=== PATIENT | female | born 1945 | race Caucasian/White ===

== ENCOUNTER 2017-03-25 20:11 | Inpatient (IN) | payer OTHER ==
--- NOTE | ~2017-03-25 | HP ---
Unit #: [id number] #: [id number] Patient: LENARD JOYNER [id number] [address] [place], [place] [address] [id number] I MR#: [id number] NAME: LENARD JOYNER ROOM: 46350 Age: 72 Sex: F Admission Date: 03/25/2017 : 1945 Attending Physician: Yesenia Zhong M.D. Primary Care Physician: Cinda Pelayo M.D. HISTORY AND PHYSICAL CHIEF COMPLAINT Progressive shortness of breath over one week. DISCUSSION This is a 72-year-old female who [facility] with a history of mild mental retardation, hypertension, history of breast cancer with previous lumpectomy and x-ray radiation in 1998, history of complete heart block requiring permanent pacemaker in the past, chronic lymphedema, morbid obesity, and chronic back pain. She was sent from [facility] for the evaluation of worsening shortness of breath over one week period of time. She found to have workup elevated BNP, CHF. Chest x-ray consistent with CHF and eventually been admitted. She denies chest pain. She says she has been having shortness of breath. She seems very anxious. Also, she had been having some dry cough, but denies nausea, vomiting, abdominal pain, or any other complaint. PAST MEDICAL HISTORY 1. History of depression. 2. History of degenerative joint disease. 3. History of mild mental retardation. 4. Hypertension. 5. History of urinary incontinence. 6. History of breast cancer, status post lumpectomy and x-ray radiation therapy of left breast in 1998. 7. History of chronic L1 compression fracture. 8. Complete heart block requiring permanent pacemaker insertion in the past. 9. History of lymphedema. 10. Morbid obesity. 11. Dyslipidemia. 12. Chronic back pain. ALLERGIES No known drug allergies. SOCIAL HISTORY Patient currently lives in the [facility]. Denies smoking. Denies alcohol. Denies illicit drug use. FAMILY HISTORY Noncontributory. MEDICATIONS Medications from the [facility] are the following: Unit #: [id number] #: [id number] Patient: LENARD JOYNER 1. Lasix 60 mg twice daily. 2. Acetylcysteine 600 mg daily. 3. Lipitor 10 mg daily. 4. Tylenol 325 q.6 hours p.r.n. 5. Tylenol #3 one tablet q.6 hours p.r.n. 6. Aspirin 81 mg daily. 7. Claritin 10 mg daily. 8. Citalopram 10 mg daily. 9. Wellbutrin 150 mg in the morning and evening. 10. K-Dur 20 mEq p.o. daily. 11. Zestril 20 mg daily. 12. Mucinex 600 mg twice daily. REVIEW OF SYSTEMS All the review of systems negative, except history of present illness. PHYSICAL EXAMINATION GENERAL APPEARANCE: Middle-aged female lying in the bed comfortably. Currently not in any distress. She is alert, awake, and oriented x2. VITAL SIGNS: Current vitals are following: Temperature 98.4, heart rate is 110, respiratory rate 22, blood pressure 182/92, and oxygen 94% on 2 liters. HEENT: Pupils equal and reactive to light and accommodation. Head is normocephalic and atraumatic. NECK: Supple. No JVD. No thyromegaly. LUNGS: Poor air entry with scattered wheeze. HEART: S1 and S2. Regular rate and rhythm. ABDOMEN: Soft, obese, and nontender. EXTREMITIES: Trace edema. NEURO: No focal neurologic deficits. Cranial nerves, II-XII, intact. DIAGNOSTIC STUDIES LABORATORY: Workup is following. White count is 17.7, hemoglobin is 12, hematocrit 38, and platelets are 312. Sodium 120, potassium 3.4, chloride 83, glucose 141, BUN 8, and creatinine 0.5. LFTs within normal limits. BNP is 507. INR is 1. Lactic acid level is 1.2. Troponin less than 0.05. ABG shows pH 7.46, CO2 40, CO2 oxygen 84%. IMAGING: Chest x-ray consistent with CHF. ASSESSMENT AND PLAN 1. CHF with (1) chest x-ray consistent with pulmonary edema. Will start patient on IV Bumex, get 2D echo, and cardiology to evaluate. 2. Hyponatremia. Most likely secondary to volume overload. Will give diuretics and (2) check, also, TSH and fluid restriction. 3. Leukocytosis. Will get urine for UA. 4. Mild hypokalemia, replace. 5. History of depression. 6. Hypertension. 7. Lymphedema. 8. Dyslipidemia. 9. Chronic lower back pain. 10. Morbid obesity. 11. DVT prophylaxis. Will place the patient on Lovenox. Unit #: [id number] #: [id number] Patient: LENARD JOYNER Dictated by Ana Norman TD: 03/26/2017 06:25 JOB #: [id number] HISTORY AND PHYSICAL Page 1 of 1 X X HISTORY AND PHYSICAL
--- NOTE | ~2017-03-25 | DS ---
Unit #: [id number] #: [id number] Patient: LENARD JOYNER [id number] [address] [address] [id number] I MR#: [id number] NAME: LENARD JOYNER ROOM: 325 Age: 72 Sex: F Admission Date: 03/25/2017 : 1945 Discharge Date: 03/29/2017 Attending Physician: Jb Lenz M.D. Primary Care Physician: Cinda Pelayo M.D. DISCHARGE SUMMARY DIAGNOSIS ON ADMISSION 1. CHF. 2. Volume overload. DIAGNOSES ON DISCHARGE 1. Chronic systolic congestive heart failure, ejection fraction 25% to 30%. 2. Valvular heart disease with mild mitral and tricuspid regurgitation. 3. Hyponatremia. 4. Hypertension. 5. Hyperlipidemia. 6. Mild mental retardation. 7. Morbid obesity. 8. History of breast cancer and lumpectomy. 9. History of complete heart block requiring permanent pacemaker in the past. 10. History of lymphedema. 11. Chronic low back pain. CONSULTATIONS 1. Dr. Kate in renal consultation. 2. Dr. Iqbal in cardiology consultation. DIAGNOSTIC STUDIES CARDIOVASCULAR: The patient had a two-D echocardiogram done with ejection fraction of 25% to 30%. She had impaired relaxation present. She also had mild mitral and tricuspid regurgitation present. LABS: The patient's creatinine was 0.6, sodium was 130. The patient's sodium on admission was 120. The patient's potassium is 4. Calcium is 8.1. Troponin is 0.06. WBC is 14.8, hemoglobin 12.6, platelet count 297. TSH was 0.69. HOSPITAL COURSE This 72-year-old female was admitted to [facility] with shortness of air. Details are as per admission H and P. Acute congestive heart failure. Patient was seen by cardiology in consultation. Was treated with IV diuretics. Patient is feeling much better now. Hyponatremia, which was likely secondary to syndrome of inappropriate antidiuretic hormone. Patient received Samsca. Her sodium is much better. Dr. 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 PHYSICAL EXAMINATION GENERAL: Today, the patient is comfortable, is not in any acute distress. [facility] VITAL SIGNS: Vital signs reveal temperature of 97.4, pulse 65 per minute, respiratory rate 16 per minute and blood pressure is 136/74. HEENT: Examination revealed no conjunctival congestion. Sclera is nonicteric. NECK: Neck is supple. Trachea is central. RESPIRATORY: Examination revealed decreased breath sounds bilaterally. There are no wheezes or crackles. HEART: Regular rate and rhythm. S1, S2. ABDOMEN: Abdomen is soft, nontender. Bowel sounds are present. EXTREMITIES: Extremities reveal 1+ edema. SKIN: Skin is warm and dry. RECOMMENDATIONS ON DISCHARGE 1. Condition is stable. 2. Activity is as tolerated. MEDICATIONS 1. Tylenol 325 mg p.o. q.6 hours p.r.n. for pain. 2. Wellbutrin 150 mg p.o. every morning. 3. Claritin 10 mg p.o. daily p.r.n. 4. Lopressor 12.5 mg p.o. b.i.d. 5. Bumex 1 mg p.o. b.i.d. 6. Mucinex 600 mg p.o. b.i.d. 7. Lipitor 10 mg p.o. q.h.s. 8. Lisinopril 20 mg p.o. daily. 9. Enteric-coated aspirin 81 mg p.o. daily. 10. Tylenol with codeine #3 1 p.o. q.6 hours p.r.n. 11. Potassium 20 mEq p.o. daily. DISPOSITION Patient will be transferred to [place]. NOTE: Kindly discuss goals of care with the patient and family, as the patient, because of her multiple medical issues, should be DNR. Please discuss that with the patient's family and follow up with them. Dictated by... Ana Rao TD: 03/29/2017 14:05 JOB #: [id number] Unit #: [id number] #: [id number] Patient: DISCHARGE SUMMARY Page 1 of 1 X Jb Lenz MD SUMMARY
--- NOTE | ~2017-03-25 | EKG ---
PATIENT: LENARD JOYNER UNIT #: [id number] Ventricular Rate: 106 BPM Atrial Rate: 106 BPM P-R Interval: 170 ms QRS Duration: 118 ms Q-T Interval: 324 ms QTC Calculation(Bezet): 430 ms P [place]: 49 degrees Calculated R [place]: 142 degrees Calculated T [place]: 71 degrees Diagnosis Line: Sinus tachycardia Diagnosis Line: Non-specific intra-ventricular conduction delay Diagnosis Line: Poor R wave progression questionable lead position Diagnosis Line: or body habitus Diagnosis Line: Abnormal ECG Diagnosis Line: No previous ECGs available Diagnosis Line: Confirmed by INA ANDREA MD ([id number]) on Diagnosis Line: 03/27/2017 1:19:00 PM INTERPRETING MD: TRISTAN
--- NOTE | ~2017-03-25 | EKG ---
PATIENT: LENARD JOYNER UNIT #: [id number] Ventricular Rate: 82 BPM Atrial Rate: 82 BPM P-R Interval: 162 ms QRS Duration: 110 ms Q-T Interval: 438 ms QTC Calculation(Bezet): 511 ms P [place]: 74 degrees Calculated R [place]: 129 degrees Calculated T [place]: 134 degrees Diagnosis Line: Normal sinus rhythm Diagnosis Line: Non-specific intra-ventricular conduction delay Diagnosis Line: Poor R wave progression questionable lead position Diagnosis Line: or body habitus Diagnosis Line: Prolonged QT Diagnosis Line: Nonspecific ST and T wave abnormality Diagnosis Line: Abnormal ECG Diagnosis Line: Diagnosis Line: Confirmed by INA ANDREA MD ([id number]) on Diagnosis Line: 03/27/2017 2:11:42 PM INTERPRETING : TRISTAN
--- NOTE | ~2017-03-25 | CO ---
Unit #: [id number] #: [id number] Patient: LENARD JOYNER [id number] [address] [address] [id number] MR#: [id number] NAME: LENARD JOYNER ROOM: 325 Age: 72 Sex: F Admission Date: 03/25/2017 : 1945 Attending Physician: Jb Lenz M.D. Primary Care Physician: Cinda Pelayo M.D. CONSULTATION REPORT REASON FOR CONSULTATION Hyponatremia. HISTORY OF PRESENT ILLNESS The patient is a 72-year-old female with a significant past medical history of some mental retardation, depression, degenerative joint disease, urinary incontinence, history of breast cancer with a history of lumpectomy back in 1998, history of some back problem with L1 compression, history of swelling of the lower extremity in the past, morbid obesity, and she came to the hospital with increasing shortness of breath, increasing swelling of the lower extremities. When I saw the patient the swelling was minimal at that time. He shortness of breath was better, but she was on oxygen at that time. Her BNP level was elevated, but she was found to have a sodium of 120 which improved to 121 after loop diuretics. The patient is on fluid restriction at this time. Shortness of breath is still present, but much better. She denies any fever or chills, still complaining of some cough. No significant orthopnea. Last echocardiogram was normal. PAST MEDICAL HISTORY 1. Significant for depression. 2. Mental retardation. 3. Urinary incontinence. 4. Breast cancer. 5. Morbid obesity. SOCIAL HISTORY The patient lives in assisted living. CURRENT MEDICATIONS 1. Lasix. 2. Claritin. 3. Citalopram. 4. Wellbutrin. 5. K-Dur. 6. Zestril. 7. Mucinex. REVIEW OF SYSTEMS Already explained in history of present illness. PHYSICAL EXAMINATION GENERAL: The patient is a middle-aged female, not in any acute distress. VITALS: Last blood pressure was 135/80, pulse 85, temperature 98, Unit #: [id number] #: [id number] Patient: LENARD JOYNER respiratory rate 22. HEENT: Pupils reactive to light. Extraocular movements intact. NECK: Supple. No jugular venous distension. No palpable lymph node in the neck. Thyroid is not enlarged. No carotid bruit. CHEST: Bilateral air entry with some rhonchi. HEART: Regular rate and rhythm. No murmur. No gallop. ABDOMEN: Soft, nontender. Pulses are positive. No guarding. No rigidity. EXTREMITIES: Trace edema. NEUROLOGIC: Grossly nonfocal. DIAGNOSTIC STUDIES LABORATORY: White blood cell count 13,000 and was 17,000, hemoglobin 12, sodium 121, potassium 3.6, chloride 85, calcium 7.8. Urine osmolality is 542. Urine sodium is 19. ASSESSMENT/PLAN 1. Hyponatremia. Cause of hyponatremia is likely some SIADH, because sodium level is significant low and the likely cause may be SSRI in the presence of the patient's decreased free water intake. At this time fluid restriction started. Loop diuretics started. Will follow up closely. 2. Congestive heart failure, although symptomatically and radiologically the patient has some congestive heart failure loop diuretics will be continued. Will follow up closely. 3. Edema. Continue diuresis secondary to maybe some diastolic dysfunction. 4. Leukocytosis. Urinalysis showed some hematuria, some proteinuria. That will be reevaluated. Antibiotics have already been started for leukocytosis, but rule out pneumonia, especially in the presence of SIADH. If sodium is not improving, may need a CAT scan to rule out any malignancy. 5. Hypertension. Blood pressure is better with diuresis. Will follow up with repeat labs later today and tomorrow morning. Thank you, Dr. Lenz, for letting me evaluate and take care of this patient. Dictated by... Ana Wesley TD: 03/27/2017 10:16 JOB #: [id number] Unit #: [id number] #: [id number] Patient: LENARD JOYNER CONSULTATION REPORT Page 1 of 1 X Roberto Kate MD CONSULTATION REPORT
--- NOTE | ~2017-03-25 | BMI ---
[facility] Nutrition Therapy DATE: 03/27/17 Patient: LENARD JOYNER Physician: PEDRO Address: [facility] Room/Bed: [address] [place] [address], Zip: [place] [address] Admit Date: 03/25/17 Date of : [birth year] Height: Weight: 279 126.8 HIGH BMI NOTE: DX: 72 y/o female admitted with SOB, CHF exacerbation with volume overload and hyponatremia ANTHROPOMETRICS: Ht: 60", Wt: 279 lbs, BMI: 54.5 (Stage III obese) DIET: Healthy heart INTERVENTION: Restricted diet, meds/fluids per MD RECOMMENDATIONS: Continue current diet due to clinical diagnosis and PMH to promote a gradual weight loss towards a healthy BMI range. Respectfully, Yessi De Santiago RD, LD Food and Nutritional Services [facility] cc: client file
--- NOTE | ~2017-03-25 | CO ---
Unit #: [id number] #: [id number] Patient: LENARD JOYNER [id number] [address] [address] [id number] I MR#: [id number] NAME: LENARD JOYNER ROOM: 325 Age: 72 Sex: F Admission Date: 03/25/2017 : 1945 Attending Physician: Jb Lenz M.D. Primary Care Physician: Cinda Pelayo M.D. Consultation Date: 03/26/2017 CONSULTATION REPORT REASON FOR CONSULTATION Congestive heart failure. HISTORY OF PRESENT ILLNESS This is a 72-year-old white female who was transferred to the emergency room from the group home because of shortness of breath. The patient is a poor historian but says that she has been dyspneic for the past one month. She reports wheezing, "two-pillow" orthopnea, with symptoms of paroxysmal nocturnal dyspnea. She has had persistent leg edema. Her chest x-ray was consistent with congestive heart failure with elevated BNP of 507. She was also hyponatremic with sodium level of 120. She was treated with IV diuretics. From a cardiac standpoint the patient has a history of hypertension, hyperlipidemia and obesity as risk factors for ischemic heart disease. She had a Lexiscan Cardiolite stress test in 2010 which showed no ischemia. Of note, there was a notation of a permanent pacemaker implantation for complete heart block. However, there was no record of permanent pacemaker for this patient on record with [employer]. PAST MEDICAL HISTORY 1. Two-D echocardiogram 05/29/2011 shows grossly normal left ventricle. There is normal structure and function of the valves. 2. Lexiscan Cardiolite stress test 05/18/2011 shows fixed defect in the distal anterior wall consistent with soft tissue attenuation versus artifact. No ischemia. Ejection fraction of 58%. 3. Hypertension. 4. Hyperlipidemia. 5. Hypothermia induced, myocardial infarction. 6. Mild mental retardation. 7. Chronic back pain. 8. Obesity. 9. Breast cancer, status post lumpectomy. 10. Lymphedema to bilateral lower extremities. 11. Nonsmoker. 12. correction resident. PAST SURGICAL HISTORY Breast lumpectomy. SOCIAL HISTORY The patient lives in a group home. She denies a history of tobacco, alcohol or illicit drug use. Unit #: [id number] #: [id number] Patient: LENARD JOYNER FAMILY HISTORY Noncontributory. ALLERGIES No known drug allergies. INTERMEDIATE MEDICATIONS 1. Zestril 20 mg daily. 2. Mucinex 600 mg b.i.d. 3. Aspirin 81 mg daily. 4. Claritin 10 mg daily. 5. Citalopram 10 mg daily. 6. Wellbutrin 150 mg 7. Potassium chloride 20 mEq daily. 8. Furosemide 60 mg b.i.d. 9. Acetylcysteine 600 mg daily. 10. Atorvastatin 10 mg daily. 11. Acetaminophen 325 mg q.6 h. p.r.n. 12. Tylenol #3 with codeine one q.6 h. p.r.n. REVIEW OF SYSTEMS CONSTITUTIONAL: Negative for fever or chills. Has no weight gain that she is aware of. HEENT: No headache, hearing or vision changes or difficulty with swallowing. Denies dizziness. CARDIOVASCULAR: Has no symptoms of angina. Denies palpitations. Positive for paroxysmal nocturnal dyspnea with "three-pillow" orthopnea. No syncope or near syncope. RESPIRATORY: Positive for dyspnea at rest with occasional productive cough. No hemoptysis. GASTROINTESTINAL: No abdominal pain, nausea or vomiting. No constipation or melena. EXTREMITIES: Positive for lower extremity edema. PHYSICAL EXAMINATION VITAL SIGNS: Blood pressure 182/92, heart rate 98, temperature 98.4. GENERAL: This is a 72-year-old obese white female who is in mild respiratory distress. NEUROLOGICAL: She is awake, alert and oriented. There are no focal weakness. NECK: Trachea is midline. No thyromegaly or lymphadenopathy, with positive jugular venous distention. HEART: S1, S2. Heart sounds are normal. No murmurs or rubs or clicks. Regular rate and rhythm. LUNGS: With coarse rales and wheezes both lungs. No rhonchi. ABDOMEN: Soft, obese, with bowel sounds present. EXTREMITIES: With 2+ leg edema. SKIN: Warm and dry. DIAGNOSTIC STUDIES LABORATORY: White count is 13.5, hemoglobin 12.8, hematocrit 38.6, platelet count 283, glucose 162, BUN 9, creatinine 0.6, sodium 121, potassium 3.6, BNP 507, TSH 0.69, troponin less than 0.05. IMAGING: Chest x-ray shows . CARDIOVASCULAR: EKG shows sinus tachycardia with a rate of 106 beats per minute. There is limb reversal noted. Repeat EKG will be done. Unit #: [id number] #: [id number] Patient: LENARD JOYNER IMPRESSION 1. Acute diastolic heart failure. 2. Hyponatremia. 3. Hypertension. 4. Hyperlipidemia. 5. Obesity. 6. Mild mental retardation. PLAN 1. Cardiology was consulted for congestive heart failure. 2. Diuretic has been started as per Renal. 3. Place the patient on fluid restriction. 4. Will obtain 2D echocardiogram to evaluate left ventricular systolic function. Most likely the heart failure is diastolic in nature. 5. Repeat troponin and EKG. 6. Lipid profile will be obtained. Thank you for allowing us to assist with this patient's care. JOB #: [id number] Dictated by... Sharon DueñasPWillRYesi for Ana Hidalgo/alexandre TD: 03/28/2017 22:41 JOB #: [id number] CONSULTATION REPORT Page 1 of 1 X Luis Felipe Rodriges APRN X CONSULTATION REPORT
--- NOTE | ~2017-03-25 | CR72 ---
[facility] A Service of [facility] RADIOLOGY TEXT RESULTS PATIENT: LENARD JOYNER LOCATION: [facility] 325- : 45 UNIT #: [id number] AGE: [address]: Jb Lenz MD SEX: F ORDER DR: [id number] [facility] [address] [facility]. [place], [place] [address] [id number] I MR#: [id number] Acc #: [id number] NAME: LENARD JOYNER : 1945 SEX: F STUDY DATE/TIME: 03/25/2017 21:42 UNIT: CED ROOM: 20081 STUDY DESCRIPTION: CR Chest Single View Portable Attending Physician: Jb Lenz M.D. Ordering Physician: Cayetano Ferrara D.O. Primary Care Physician: Cinda Pelayo M.D. MEDICAL IMAGING REPORT This report is preliminary unless electronic signature is present EXAM Portable chest 03/25/2017 COMPARISON 01/02/2015. HISTORY Shortness of breath and cough for 2 weeks. FINDINGS AP portable view was obtained. There is cardiomegaly. The patient has developed pulmonary vascular congestion and edema. Calcifications are seen in multiple left-sided hilar nodes. There are clips identified in the right axillary region. CONCLUSION Radiographic features consistent with congestive heart failure. Dictated by... Angel Cartagena M.D. THIS IS AN ELECTRONICALLY VERIFIED REPORT Angel Cartagena M.D. at 03/26/2017 6:08 PM SRAVANI/surya TD: 03/26/2017 07:26 JOB #: [id number] MEDICAL IMAGING REPORT Page 1 of 1 COPY
[~2017-03-25 20:11] MED LIST: ACETAMINOPHEN325 MG PO; ALBUTEROL17 GM INH; AMITRYPTYLINE PO; AMLODIPINE BESY10 MG PO; BACTROBAN22 GM TP; BAYER ASPIRIN325 M1 PO; COREG3.125 MG PO; DITROPAN XL; DITROPAN XL5 M1 PO; FLEXERIL10 MG PO; IRON325 ( 652 PO; LEVAQUIN250 MG PO; LOC PO; NAPROSYN500 MG PO; NAPROXEN PO; NAPROXEN SODIU500 MG PO; NAPROXEN25 GM PO; NERVE PILL; NORVASC; NORVASC PO; NORVASC10 MG PO; PERCOCET5/325 PO; XENADERM; ZESTRIL5 MG PO; ZOLOFT PO; ZOLOFT100 MG PO
[2017-03-25 21:28] LABS: ARTERIAL BLD GAS O2 SATURATION 95.6 % (90.0-100.0); ARTERIAL BLOOD GAS CARBOXY HB 0.9 %sat (0.0-9.0); ARTERIAL BLOOD GAS HCO3 28.8 mmol/L; ARTERIAL BLOOD GAS PO2 84.9 mmHg (80.0-100); ARTERIAL BLOOD GAS pH 7.466 (7.350-7.450)
[2017-03-25 21:29] LABS: ARTERIAL BLOOD GAS ART SITE RIGHT BRACHIAL; ARTERIAL BLOOD GAS DELIVERY NASAL CANNULA; ARTERIAL BLOOD GAS MET HB 0.6 %sat (0.0-2.0); ARTERIAL DRAW? YES
[2017-03-25 22:03] LABS: POC - CKMB 11.2 ng/mL (0.0-7.9); POC - TROPONIN <0.05 ng/mL (<=0.05)
[2017-03-25 22:08] LABS: BASOPHIL% 0.2 % (0-2.5); EOSINOPHIL% 0.1 % (0.0-7.0); HEMOGLOBIN 12.7 gm/dL (12.0-16.0); LYMPHOCYTE# 1.1 X10e3 (1.0-3.5); LYMPHOCYTE% 6.4 % (17.0-45.0); MEAN CELL VOLUME 81.4 FL (83-96); MEAN CORPUSCULAR HEMOGLOBIN 27.2 PG (28-34); MEAN CORPUSCULAR HGB CONC 33.4 g/dL (30-36); MONOCYTE# 1.7 X10e3 (0-1.0); MONOCYTE% 9.6 % (3.0-12.0); NEUTROPHIL# 14.8 X10e3 (1.5-7.1); NEUTROPHIL% 83.7 % (40-75); PLATELET COUNT 312 X10e3 (140-420); RED BLOOD COUNT 4.66 X10e (3.90-5.30); RED CELL DISTRIBUTION WIDTH 13.7 % (11.0-15.5); WHITE BLOOD COUNT 17.7 X10e3 (4.0-10.5)
[2017-03-25 22:11] LABS: DIFF IND YES
[2017-03-25 22:14] LABS: PROTHROMBIN TIME (PATIENT) 10.6 SECONDS (9.6-11.5)
[2017-03-25 22:32] LABS: ALBUMIN SERUM 3.2 g/dL (3.5-5.0); BILIRUBIN, DIRECT 0.1 mg/dL (0.0-0.2); BILIRUBIN,INDIRECT 0.5 mg/dL (0.0-0.9); BILIRUBIN,TOTAL 0.6 mg/dL (0.2-2.0); CALCIUM SERUM 8.3 mg/dL (8.4-10.2); CREATININE SERUM 0.5 mg/dL (0.6-1.4); GLOM FILT RATE Estimated 96.7 mL/min (>60); POTASSIUM 3.4 mmol/L (3.5-5.1); PROTEIN TOTAL SERUM 7.2 g/dL (6.0-8.3)
[2017-03-25 22:47] LABS: ANISOCYTOSIS SL; PLATELET ESTIMATE NORMAL (NORMAL)
[2017-03-25] MEDS ORDERED: ASPIRIN EC81 M1 PO (23:13)
[2017-03-25] MEDS ORDERED: CLARITIN10 M3 PO (23:14)
[2017-03-25] MEDS ORDERED: CELEXA10 MG PO (23:14)
[2017-03-25] MEDS ORDERED: K-DUR20 ME1 PO (23:15)
[2017-03-25] MEDS ORDERED: WELLBUTRIN XL150 M2 PO (23:15)
[2017-03-25] MEDS ORDERED: LASIX PO (23:16)
[2017-03-25] MEDS ORDERED: NAC600 MG PO (23:16)
[2017-03-25] MEDS ORDERED: LIPITOR PO (23:17)
[2017-03-25] MEDS ORDERED: TYL325 PO (23:18)
[2017-03-25] MEDS ORDERED: TYLENOL #3 PO (23:19)
[2017-03-25] MEDS ORDERED: LISINOPRIL PO (23:20)
[2017-03-25] MEDS ORDERED: MUCINEX100 MG/5 M PO (23:21)
[2017-03-26 01:13] LABS: URINE SOURCE CATH
[2017-03-26 01:34] LABS: URINE APPEARANCE CLEAR; URINE BILIRUBIN NEG (NEG); URINE BLOOD 2+ (NEG); URINE COLOR YELLOW; URINE GLUCOSE NEG (NEG); URINE KETONE TRACE (NEG); URINE LEUKOCYTE ESTERASE NEG (NEG); URINE NITRATE NEG (NEG); URINE PROTEIN 2+ (NEG); URINE SPECIFIC GRAVITY 1.012 (1.003-1.035)
[2017-03-26 01:36] LABS: URINE BACTERIA AUWI NEG (NEGATIVE); URINE SQUAMOUS EPITHELIAL CELL OCC /[HPF]; UWBCS1 AUWI 0-2 (0-5)
[2017-03-26 01:57] LABS: CULTURE INDICATED? NO
[2017-03-26 08:43] LABS: BASOPHIL% 0.2 % (0-2.5); EOSINOPHIL% 0.1 % (0.0-7.0); HEMATOCRIT 38.6 % (35.0-45.0); HEMOGLOBIN 12.8 gm/dL (12.0-16.0); LYMPHOCYTE# 0.8 X10e3 (1.0-3.5); LYMPHOCYTE% 6.3 % (17.0-45.0); MEAN CELL VOLUME 81.3 FL (83-96); MEAN CORPUSCULAR HGB CONC 33.3 g/dL (30-36); MEAN PLATELET VOLUME 7.8 FL (6.5-11.5); MONOCYTE# 0.3 X10e3 (0-1.0); MONOCYTE% 2.1 % (3.0-12.0); NEUTROPHIL# 12.3 X10e3 (1.5-7.1); NEUTROPHIL% 91.3 % (40-75); PLATELET COUNT 283 X10e3 (140-420); RED BLOOD COUNT 4.75 X10e (3.90-5.30); RED CELL DISTRIBUTION WIDTH 13.7 % (11.0-15.5); WHITE BLOOD COUNT 13.5 X10e3 (4.0-10.5)
[2017-03-26 08:44] LABS: DIFF IND NO
[2017-03-26 09:13] LABS: CALCIUM SERUM 7.8 mg/dL (8.4-10.2); CREATININE SERUM 0.6 mg/dL (0.6-1.4); GLOM FILT RATE Estimated 91.1 mL/min (>60); POTASSIUM 3.6 mmol/L (3.5-5.1)
[2017-03-26 11:53] LABS: URINE SOURCE CLEAN CATCH
[2017-03-26 11:57] LABS: URINE APPEARANCE CLEAR; URINE BILIRUBIN NEG (NEG); URINE BLOOD 3+ (NEG); URINE COLOR YELLOW; URINE GLUCOSE NEG (NEG); URINE KETONE 1+ (NEG); URINE LEUKOCYTE ESTERASE NEG (NEG); URINE NITRATE NEG (NEG); URINE PROTEIN 2+ (NEG)
[2017-03-26 11:59] LABS: URBCS1 AUWI 200-300 /[HPF] (0-2); URINE BACTERIA AUWI NEG (NEGATIVE); URINE SQUAMOUS EPITHELIAL CELL OCC /[HPF]
[2017-03-26 12:00] LABS: CULTURE INDICATED? NO
[2017-03-26 13:13] LABS: OSMOLALITY,URINE 542 mOsmo/kg (250-900)
[2017-03-26 13:22] LABS: CREATININE,RANDOM URINE 107 mg/dL; SODIUM URINE RANDOM 19 mmol/L
[2017-03-26 15:06] LABS: CALCIUM SERUM 7.9 mg/dL (8.4-10.2); CREATININE SERUM 0.5 mg/dL (0.6-1.4); GLOM FILT RATE Estimated 96.7 mL/min (>60); POTASSIUM 3.5 mmol/L (3.5-5.1); URIC ACID 3.3 mg/dL (2.6-7.2)
[2017-03-26 19:56] LABS: CREATININE SERUM 0.6 mg/dL (0.6-1.4); GLOM FILT RATE Estimated 91.1 mL/min (>60); POTASSIUM 3.4 mmol/L (3.5-5.1)
[2017-03-27 09:32] LABS: HEMATOCRIT 38.1 % (35.0-45.0); HEMOGLOBIN 12.5 gm/dL (12.0-16.0); MEAN CELL VOLUME 82.9 FL (83-96); MEAN CORPUSCULAR HEMOGLOBIN 27.2 PG (28-34); MEAN CORPUSCULAR HGB CONC 32.8 g/dL (30-36); MEAN PLATELET VOLUME 8.1 FL (6.5-11.5); RED BLOOD COUNT 4.59 X10e (3.90-5.30); RED CELL DISTRIBUTION WIDTH 14.2 % (11.0-15.5); WHITE BLOOD COUNT 16.4 X10e3 (4.0-10.5)
[2017-03-27 10:01] LABS: CALCIUM SERUM 7.8 mg/dL (8.4-10.2); CREATININE SERUM 0.7 mg/dL (0.6-1.4); GLOM FILT RATE Estimated 86.6 mL/min (>60); MAGNESIUM 1.8 mg/dL (1.6-3.0); PHOSPHOROUS 2.9 mg/dL (2.5-4.6); POTASSIUM 3.5 mmol/L (3.5-5.1)
[2017-03-27 10:04] LABS: CHOLESTEROL 100 mg/dL (0-200); HDL CHOLESTEROL 35 mg/dL (35-95); LDL CHOLESTEROL 45 mg/dL (-130); LDL/HDL RATIO 1 RATIO (0-4); TRIGLYCERIDES 102 mg/dL (10-160)
[2017-03-27 20:34] LABS: BUN/CREATININE RATIO 24.28; CREATININE SERUM 0.7 mg/dL (0.6-1.4); GLOM FILT RATE Estimated 86.6 mL/min (>60); POTASSIUM 3.9 mmol/L (3.5-5.1)
[2017-03-28 06:21] LABS: HEMATOCRIT 36.5 % (35.0-45.0); HEMOGLOBIN 12.2 gm/dL (12.0-16.0); MEAN CELL VOLUME 83.4 FL (83-96); MEAN CORPUSCULAR HEMOGLOBIN 27.9 PG (28-34); MEAN CORPUSCULAR HGB CONC 33.5 g/dL (30-36); RED BLOOD COUNT 4.37 X10e (3.90-5.30); RED CELL DISTRIBUTION WIDTH 13.9 % (11.0-15.5)
[2017-03-28 07:29] LABS: BUN/CREATININE RATIO 22.85; CALCIUM SERUM 7.9 mg/dL (8.4-10.2); CREATININE SERUM 0.7 mg/dL (0.6-1.4); GLOM FILT RATE Estimated 86.6 mL/min (>60); MAGNESIUM 2.1 mg/dL (1.6-3.0); POTASSIUM 3.5 mmol/L (3.5-5.1)
[2017-03-28 18:13] LABS: BUN/CREATININE RATIO 21.42; CALCIUM SERUM 8.2 mg/dL (8.4-10.2); CREATININE SERUM 0.7 mg/dL (0.6-1.4); GLOM FILT RATE Estimated 86.6 mL/min (>60); POTASSIUM 4.2 mmol/L (3.5-5.1)
[2017-03-29 06:02] LABS: HEMATOCRIT 39.1 % (35.0-45.0); HEMOGLOBIN 12.6 gm/dL (12.0-16.0); MEAN CELL VOLUME 84.6 FL (83-96); MEAN CORPUSCULAR HEMOGLOBIN 27.2 PG (28-34); MEAN CORPUSCULAR HGB CONC 32.2 g/dL (30-36); MEAN PLATELET VOLUME 8.1 FL (6.5-11.5); RED BLOOD COUNT 4.61 X10e (3.90-5.30); RED CELL DISTRIBUTION WIDTH 14.4 % (11.0-15.5); WHITE BLOOD COUNT 14.8 X10e3 (4.0-10.5)
[2017-03-29 07:15] LABS: BUN/CREATININE RATIO 23.33; CALCIUM SERUM 8.1 mg/dL (8.4-10.2); CREATININE SERUM 0.6 mg/dL (0.6-1.4); GLOM FILT RATE Estimated 91.1 mL/min (>60); MAGNESIUM 2.3 mg/dL (1.6-3.0)
== END 2017-03-29 17:15 | DRG 292 ==
LOC: CED 20:11 → CEDOF 23:40 → C3A PCU 23:40 → CED 23:43 → CEDOF 23:43 → C3A PCU 03-26 15:15
PROVIDERS: Emergency Medicine; Family Medicine; Internal Medicine; Internal Medicine Cardiovascular Disease; Internal Medicine Nephrology
PROC: B24BZZZ Ultrasonography of Heart with Aorta (ICD-10-PCS; principal; 2017-03-26)
DX: I11.0 Hypertensive heart disease with heart failure (principal); E22.2 Syndrome of inappropriate secretion of antidiuretic hormone; I08.1 Rheumatic disorders of both mitral and tricuspid valves; E66.01 Morbid (severe) obesity due to excess calories; I50.21 Acute systolic (congestive) heart failure; E78.5 Hyperlipidemia, unspecified; F70 Mild intellectual disabilities; G89.29 Other chronic pain; M54.5 Low back pain; D72.829 Elevated white blood cell count, unspecified; E87.6 Hypokalemia; F32.9 Major depressive disorder, single episode, unspecified; I89.0 Lymphedema, not elsewhere classified; I25.2 Old myocardial infarction; Z95.0 Presence of cardiac pacemaker; Z85.3 Personal history of malignant neoplasm of breast; Z92.3 Personal history of irradiation
CPT/HCPCS: 36415; 36600; 71010; 80048; 80061; 80076; 81003; 82553; 82570; 82803; 82947; 83605; 83735; 83880; 83935; 84100; 84156; 84300; 84443; 84484; 84550; 85025; 85027; 85610; 85730; 93005; 93306; 94640; 94760; 94761; 96374; 97116; 97162; 97166; 97530; 97535; 99285; G8978-GP; G8979-GP; G8987-GO; G8988-GO; J0610; J1650; J2543; J2930; J3370; J3475